=== PATIENT | female | born 1955 | race Two or more races ===

== ENCOUNTER 2021-06-15 05:42 | Day surgery (SDC) | payer OTHER ==
[~2021-06-15 05:42] MED LIST: ALTACE5 MG PO; ATORVASTATIN CA10 MG PO; OMEGA-31000 MG PO
[2021-06-15] MEDS ORDERED: MACROBID 100 M100 MG PO (09:16)
== END 2021-06-15 11:30 | disposition home or self-care (01) ==
LOC: CIR.AMB 05:42
PROVIDERS: ATTEND Obstetrics & Gynecology Gynecology
DX: N81.11 Cystocele, midline (principal); Z20.822 Contact with and (suspected) exposure to COVID-19